=== PATIENT | female | born 1985 | race Caucasian/White ===

== ENCOUNTER 2018-12-14 10:27 | Emergency (ER) | payer OTHER ==
[~2018-12-14] VITALS: Ht 157.5 cm; Wt 70.3 kg
[~2018-12-14 10:27] MED LIST: IBUPROFEN 800800 M1 PO; PROZAC40 MG PO; XANAX XR0.5 MG PO
[2018-12-14] MEDS ORDERED: SERTRALINE HCL50 MG (10:34)
[2018-12-14 10:55] LABS: ABSOLUTE EOSINOPHILS 0.1 thou/uL (0.0-0.7); ABSOLUTE LYMPHOCYTES 2.2 thou/uL (0.8-5.3); ABSOLUTE MONOCYTES 0.6 thou/uL (0.0-1.2); ABSOLUTE NEUTROPHILS 5.8 thou/uL (1.6-8.1); BASOPHILS 0.5 %; EOSINOPHILS 1.1 %; HEMATOCRIT 42.5 % (37.0-47.0); HEMOGLOBIN 14.3 gm/dL (12.0-15.0); LYMPHOCYTES 25.7 %; MCH 30.1 pg (26.0-34.0); MCHC 33.6 g/dL (28.0-37.0); MCV 89.7 fL (80.0-100.0); MONOCYTES 6.7 %; MPV 9.4 fl. (7.2-11.1); NUCLEATED RBCS 0 /100WBC; PLATELET COUNT* 230 thou/uL (150-400); RBC 4.74 mil/uL (4.20-5.00); RDW-CV 13.9 % (10.5-14.5); WBC 8.7 thou/uL (4.0-11.0)
[2018-12-14 10:58] LABS: ANION GAP 9 mmol/L (7-16); BUN 13 mg/dL (7-18); CALCIUM 9.5 mg/dL (8.5-10.1); CHLORIDE 100 mmol/L (98-107); CO2 26 mmol/L (21-32); CREATININE 0.6 mg/dL (0.6-1.3); GLUCOSE 90 mg/dL (70-99); POTASSIUM 3.8 mmol/L (3.5-5.1); SODIUM 135 mmol/L (136-145)
[2018-12-14 11:07] LABS: APTT 27.3 Seconds (25.0-31.3); PROTIME 9.9 Seconds (9.20-11.50)
[2018-12-14 11:17] LABS: ALBUMIN 4.3 g/dL (3.4-5.0); ALKALINE PHOSPHATASE 49 U/L (46-116); CK-MB MASS 0.5 ng/mL (<0.5-3.6); LIPASE 140 U/L (73-393); NT-PRO BRAIN NAT PEPTIDE 14 pg/mL (<300); SGOT 17 U/L (15-37); SGPT 39 U/L (30-65); TOTAL BILIRUBIN 0.4 mg/dL (<0.1-1.0); TROPONIN-I LEVEL <0.06 ng/mL (<0.06)
[2018-12-14 11:40] VITALS: BP 120/67
--- NOTE | 2018-12-14 15:37 | EKG ---
[place] [address] ELECTROCARDIOGRAM REPORT Name: SUMI GONZALES Room: [facility]#: [id number] Admission: 12/14/18 Attend Phys: Discharge: 12/14/18 Date of : 89 Report #: [id number] THIS REPORT FOR: //name// [facility] ED Test Date: 2018-12-14 Test Time: 10:31:16 Pat Name: SUMI GONZALES Department: Room: Gender: F Home Health Assistant: Jose PAIGE : 1985 Requested By: Curt Sanders Order Number: [id number] MD: Shamar Castellano Measurements Intervals [place] Rate: 101 P: 64 [place]: 132 QRS: 81 QRSD: 82 T: 41 QT: 352 QTc: 457 Interpretive Statements Sinus tachycardia Probable left atrial enlargement Borderline repolarization abnormality No previous ECG available for comparison Electronically Signed On 12-14-2018 15:36:58 PANTOGRAPHER by Shamar Castellano [email or web address] <ELECTRONICALLY SIGNED> By: Shamar Castellano MD, [facility] 12/14/18 1536 1031 1031 Shamar Castellano MD, FACC /EPI
== END 2018-12-14 11:42 | disposition home or self-care (01) ==
LOC: M.ERS 10:27
PROVIDERS: Family Medicine
DX: R07.89 Other chest pain (principal); F32.9 Major depressive disorder, single episode, unspecified; F41.9 Anxiety disorder, unspecified